=== PATIENT | male | born 1990 | race Caucasian/White ===

== ENCOUNTER 2017-12-27 13:06 | Emergency (ER) | payer OTHER ==
[2017-12-27] MEDS: IBUPROFEN 800 MG TAB PO (13:40)
== END 2017-12-27 14:10 | disposition home or self-care (01) ==
LOC: FTE 13:06
DX: S90.112A Contusion of left great toe without damage to nail, initial encounter (principal); F17.210 Nicotine dependence, cigarettes, uncomplicated; V00.131A Fall from skateboard, initial encounter; Y92.9 Unspecified place or not applicable
CPT/HCPCS: 73630; 73630-LT; 99283-25

== ENCOUNTER 2018-02-16 01:41 | Emergency (ER) | payer OTHER ==
[2018-02-16] MEDS: DIPHTH/TET/ACEL PERTUSS (ADULT) 0.5 ML VIAL IM* (03:34)
[2018-02-16 05:51] LABS: HEPATITIS B SURFACE ANTIGEN NEGATIVE (NEGATIVE)
[2018-02-16] MEDS: CEFAZOLIN 1 GM INJ IM (05:57)
[2018-02-16 06:08] LABS: HEPATITIS C VIRAL ANTIBODY NEGATIVE (NEGATIVE); HIV 1&2 ANTIBODY NEGATIVE (NEGATIVE)
[2018-02-16 06:08] LABS: HEPATITIS B SURFACE ANTIBODY POSITIVE (NEGATIVE)
== END 2018-02-16 06:03 | disposition home or self-care (01) ==
LOC: E/R 01:41
DX: S02.92XA Unspecified fracture of facial bones, initial encounter for closed fracture (principal); R40.2142 Coma scale, eyes open, spontaneous, at arrival to emergency department; R40.2362 Coma scale, best motor response, obeys commands, at arrival to emergency department; R40.2252 Coma scale, best verbal response, oriented, at arrival to emergency department; S02.2XXA Fracture of nasal bones, initial encounter for closed fracture; Y04.0XXA Assault by unarmed brawl or fight, initial encounter; Y92.009 Unspecified place in unspecified non-institutional (private) residence as the place of occurrence of the external cause; Z87.891 Personal history of nicotine dependence; Z23 Encounter for immunization
CPT/HCPCS: 70450; 70486; 72125; 86703; 86706; 86803; 87340; 90471; 90715; 96372; 99285-25